=== PATIENT | male | born 1965 | race African-American/Black ===

== ENCOUNTER 2020-07-27 13:39 | Inpatient (IN) | payer BC, OTHER ==
[2020-07-27] MEDS ORDERED: SODIUM CHLORIDE 1,000 ML IV STA (14:19)
[2020-07-27 16:10] LABS: BASO % 0.7 % (0-2.0); EOS % 1.2 % (0-4.5); HEMATOCRIT 42.4 % (35.4-49); LYMPH % 34.2 % (8-40); MCH 29.5 pg (25.7-33.7); MCHC 32.9 g/dl (32.0-35.9); MEAN CELL VOLUME 89.4 fl (80-96); MEAN PLT VOLUME 8.6 fl (7.5-11.1); MONO % 8.6 % (3.8-10.2); NEUT % 55.3 % (42.8-82.8); PLATELET COUNT 248 K/MM3 (134-434); RBC 4.74 M/mm3 (4.00-5.60); RDW 14.6 % (11.9-15.9); WHITE BLOOD COUNT 4.2 K/mm3 (4.0-10.0)
[2020-07-27 16:13] LABS: PH,URINE 6.5 (5.0-8.0); URINE APPEARANCE CLEAR; URINE BILIRUBIN NEGATIVE (NEGATIVE); URINE COLOR YELLOW; URINE GLUCOSE (UA) 3+ (NEGATIVE); URINE KETONE 1+ (NEGATIVE); URINE LEUK ESTERASE NEGATIVE (NEGATIVE); URINE NITRITE NEGATIVE (NEGATIVE); URINE PROTEIN NEGATIVE (NEGATIVE); URINE UROBILINOGEN 0.2 mg/dL (0.2-1.0)
[2020-07-27 16:19] LABS: INR 0.88 (0.83-1.09); PROTHROMBIN TIME (PATIENT) 10.9 SEC (9.7-13.0)
[2020-07-27 16:22] LABS: ACTIVATED PTT 25.9 SECONDS (25.2-36.5)
[2020-07-27] MEDS ORDERED: INSULIN REGULAR HUMAN 100 UNITS/ML *VIAL IVPUSH ONE (16:31)
[2020-07-27 16:38] LABS: CHLORIDE 93 mmol/L (98-107); SODIUM 130 mmol/L (136-145)
[2020-07-27 16:42] LABS: ALBUMIN 3.9 g/dl (3.4-5.0); ANION GAP 11 MMOL/L (8-16); BLOOD UREA NITROGEN 19.2 mg/dL (7-18); CALCIUM 9.4 mg/dL (8.5-10.1); CO2 26 mmol/L (21-32)
[2020-07-27] MEDS ORDERED: INSULIN REGULAR HUMAN 100 UNITS/ML *VIAL ONE (16:43)
[2020-07-27 16:44] LABS: CREATININE 1.2 mg/dL (0.55-1.3); SGOT/AST 16 U/L (15-37); SGPT/ALT 24 U/L (13-61)
[2020-07-27] MEDS ORDERED: INSULIN REGULAR 100 UNITS in SODIUM CHLORIDE 99 ML IVPB SCH (16:45)
[2020-07-27 16:46] LABS: BILIRUBIN,TOTAL 0.6 mg/dL (0.2-1); TOT PROT 7.9 g/dl (6.4-8.2)
[2020-07-27 16:47] LABS: ALK PHOS 169 U/L (45-117)
[2020-07-27 16:50] LABS: GLUCOSE,RANDOM 663 mg/dL (74-106)
[2020-07-27 17:30] LABS: VENOUS BASE EXCESS 0.5 mmol/L (-2-2); VENOUS O2 SATURATION 22.1 % (70-80); VENOUS PCO2 49.7 mmHg (38-52); VENOUS PH 7.35 (7.310-7.410)
[2020-07-28] MEDS ORDERED: INSULIN SLIDING SCALE (NOVOLOG) 1 VIAL SQ SCH ×3 (00:20→07:00)
[2020-07-28] MEDS ORDERED: INSULIN (NOVOLOG) ASPART 100 UNITS/ML 10ML VIAL SQ ONE (00:30)
[2020-07-28 02:18] VITALS: BMI 23.3
[2020-07-28] MEDS: INSULIN SLIDING SCALE (NOVOLOG) 1 VIAL SQ SCH ×5 (04:57→20:22)
[2020-07-28] MEDS ORDERED: INSULIN (NOVOLOG) ASPART 100 UNITS/ML 10ML VIAL ONE ×2 (08:27→20:18)
[2020-07-28 08:56] LABS: BASO % 0.6 % (0-2.0); EOS % 2.2 % (0-4.5); HEMATOCRIT 37.8 % (35.4-49); LYMPH % 45.8 % (8-40); MCH 30.1 pg (25.7-33.7); MCHC 34.3 g/dl (32.0-35.9); MEAN CELL VOLUME 87.7 fl (80-96); MEAN PLT VOLUME 8.5 fl (7.5-11.1); NEUT % 38.4 % (42.8-82.8); PLATELET COUNT 227 K/MM3 (134-434); RBC 4.31 M/mm3 (4.00-5.60); WHITE BLOOD COUNT 4.4 K/mm3 (4.0-10.0)
[2020-07-28 09:31] LABS: ALBUMIN 3.2 g/dl (3.4-5.0); CALCIUM 8.5 mg/dL (8.5-10.1)
[2020-07-28 09:32] LABS: BLOOD UREA NITROGEN 14.8 mg/dL (7-18)
[2020-07-28 09:34] LABS: CREATININE 0.9 mg/dL (0.55-1.3)
[2020-07-28 09:36] LABS: BILIRUBIN,TOTAL 0.4 mg/dL (0.2-1); TOT PROT 6.8 g/dl (6.4-8.2)
[2020-07-28] MEDS ORDERED: INSULIN (LEVEMIR) 100 UNITS/ML UNITS SQ SCH ×2 (10:15)
[2020-07-28] MEDS: INSULIN (LEVEMIR) 100 UNITS/ML UNITS SQ SCH ×2 (12:18→20:59)
[2020-07-28] MEDS ORDERED: ACETAMINOPHEN 325 MG TABLET (FP) PO PRN (16:13)
[2020-07-28] MEDS: POLYETHYLENE GLYCOL 3350 119 GM BTL PO SCH (16:52)
[2020-07-29] MEDS: INSULIN SLIDING SCALE (NOVOLOG) 1 VIAL SQ SCH ×3 (06:00→12:39)
[2020-07-29 06:37] VITALS: TEMP 97.9
[2020-07-29] MEDS ORDERED: INSULIN (LEVEMIR) 100 UNITS/ML UNITS SQ SCH (07:00)
[2020-07-29] MEDS: POLYETHYLENE GLYCOL 3350 119 GM BTL PO SCH (10:51)
[2020-07-29 10:59] VITALS: BP 101/71; PULSE 76
== END 2020-07-29 14:12 | disposition home or self-care (01) | DRG 420 ==
LOC: JER 13:39 → JERBED 17:10 → J5S 23:44
PROVIDERS: ADMIT Hospitalist; ATTEND Family Medicine
DX: E11.65 Type 2 diabetes mellitus with hyperglycemia (principal); E87.1 Hypo-osmolality and hyponatremia
CPT/HCPCS: 36415; 80053; 81003; 82010; 82550; 82803; 82962; 84484; 85025; 85610; 85730; 87086; 93005; 93010; 99285-25; C9803; U0003; U0005

== ENCOUNTER 2022-05-07 13:22 | Emergency (ER) | payer BC, OTHER ==
[2022-05-07 13:27] VITALS: RESP 18; BMI 28.3
[2022-05-07 15:15] LABS: BASO % 0.3 % (0-2.0); EOS % 2.1 % (0-4.5); HEMATOCRIT 40.2 % (35.4-49); HEMOGLOBIN 13.5 GM/dL (11.7-16.9); LYMPH % 21.2 % (8-40); MCH 29.9 pg (25.7-33.7); MCHC 33.6 g/dl (32.0-35.9); MONO % 19.7 % (3.8-10.2); NEUT % 56.7 % (42.8-82.8); PLATELET COUNT 208 10^3/uL (134-434); RBC 4.51 M/mm3 (4.00-5.60); RDW 14.3 % (11.9-15.9); WHITE BLOOD COUNT 5.2 K/mm3 (4.0-10.0)
[2022-05-07 15:18] LABS: URINE APPEARANCE CLEAR; URINE BILIRUBIN NEGATIVE (NEGATIVE); URINE COLOR YELLOW; URINE GLUCOSE (UA) NEGATIVE (NEGATIVE); URINE KETONE NEGATIVE (NEGATIVE); URINE LEUK ESTERASE NEGATIVE (NEGATIVE); URINE NITRITE NEGATIVE (NEGATIVE); URINE PROTEIN NEGATIVE (NEGATIVE); URINE UROBILINOGEN 0.2 mg/dL (0.2-1.0)
[2022-05-07 15:39] LABS: CALCIUM 8.6 mg/dL (8.5-10.1)
[2022-05-07 15:40] LABS: ALBUMIN 3.4 g/dl (3.4-5.0); BLOOD UREA NITROGEN 15.9 mg/dL (7-18); MAGNESIUM 1.8 mg/dL (1.8-2.4)
[2022-05-07 15:42] LABS: CREATININE 1.1 mg/dL (0.55-1.3)
[2022-05-07 15:44] LABS: BILIRUBIN,TOTAL 0.5 mg/dL (0.2-1); TOT PROT 7.6 g/dl (6.4-8.2)
[2022-05-07 17:42] VITALS: BP 112/56; PULSE 68; TEMP 98.2
== END 2022-05-07 17:32 | disposition home or self-care (01) ==
LOC: JER 13:22
DX: R53.83 Other fatigue (principal)
CPT/HCPCS: 0241U-QW; 36415; 80053; 81003; 82150; 82962; 83690; 83735; 85025; 87086; 99283-25

== ENCOUNTER 2022-05-30 14:36 | Observation (INO) | payer BC ==
[2022-05-30] MEDS ORDERED: SODIUM CHLORIDE 1,000 ML IV ONE (15:45)
[2022-05-30 16:42] LABS: BASO % 0.6 % (0-2.0); EOS % 1.4 % (0-4.5); HEMATOCRIT 38.4 % (35.4-49); HEMOGLOBIN 12.5 GM/dL (11.7-16.9); LYMPH % 20.3 % (8-40); MCH 28.4 pg (25.7-33.7); MCHC 32.7 g/dl (32.0-35.9); MEAN CELL VOLUME 86.9 fl (80-96); MEAN PLT VOLUME 7.3 fl (7.5-11.1); NEUT % 63.7 % (42.8-82.8); PLATELET COUNT 298 10^3/uL (134-434); RBC 4.42 M/mm3 (4.00-5.60); RDW 14.7 % (11.9-15.9)
[2022-05-30 16:49] LABS: INR 1.15 (0.83-1.09); PROTHROMBIN TIME (PATIENT) 13.3 SEC (9.7-13.0)
[2022-05-30 16:52] LABS: ACTIVATED PTT 28.1 SECONDS (25.2-36.5)
[2022-05-30 17:18] LABS: CALCIUM 8.4 mg/dL (8.5-10.1)
[2022-05-30 17:19] LABS: ALBUMIN 3.1 g/dl (3.4-5.0); BLOOD UREA NITROGEN 21.1 mg/dL (7-18)
[2022-05-30 17:22] LABS: CREATININE 1.1 mg/dL (0.55-1.3)
[2022-05-30 17:22] LABS: PH,URINE 6.5 (5.0-8.0); URINE APPEARANCE CLEAR; URINE BILIRUBIN NEGATIVE (NEGATIVE); URINE COLOR YELLOW; URINE GLUCOSE (UA) 3+ (NEGATIVE); URINE KETONE NEGATIVE (NEGATIVE); URINE LEUK ESTERASE NEGATIVE (NEGATIVE); URINE NITRITE NEGATIVE (NEGATIVE); URINE PROTEIN NEGATIVE (NEGATIVE); URINE UROBILINOGEN 0.2 mg/dL (0.2-1.0)
[2022-05-30 17:23] LABS: TOT PROT 7.4 g/dl (6.4-8.2)
[2022-05-30 17:24] LABS: BILIRUBIN,TOTAL 0.4 mg/dL (0.2-1)
[2022-05-30] MEDS ORDERED: ACETAMINOPHEN 325 MG TABLET (FP) PO PRN (17:38)
[2022-05-30] MEDS ORDERED: BLOOD SUGAR DIAGNOSTIC MC SCH (22:00)
[2022-05-30] MEDS: D5-1/2NS+20 MEQ KCL - 20 MEQ/1,000 ML INFUS.BAG IV SCH (22:49)
[2022-05-31 08:04] LABS: CALCIUM 8.5 mg/dL (8.5-10.1)
[2022-05-31 08:05] LABS: ALBUMIN 2.9 g/dl (3.4-5.0); BLOOD UREA NITROGEN 17.9 mg/dL (7-18); MAGNESIUM 2.1 mg/dL (1.8-2.4)
[2022-05-31 08:09] LABS: BILIRUBIN,TOTAL 0.4 mg/dL (0.2-1); TOT PROT 7.3 g/dl (6.4-8.2)
[2022-05-31 08:13] LABS: CHOLESTEROL 110 mg/dL (50-200)
[2022-05-31 08:14] LABS: LDL CHOLESTEROL (ONLY SJRH) 60 mg/dL (5-100)
[2022-05-31 08:15] LABS: HDL CHOLESTEROL 38 mg/dL (40-60)
[2022-05-31 08:19] LABS: BASO % 0.3 % (0-2.0); EOS % 3.6 % (0-4.5); HEMATOCRIT 37.8 % (35.4-49); HEMOGLOBIN 12.8 GM/dL (11.7-16.9); MCH 29.1 pg (25.7-33.7); MCHC 33.8 g/dl (32.0-35.9); MEAN CELL VOLUME 85.9 fl (80-96); MEAN PLT VOLUME 7.4 fl (7.5-11.1); MONO % 20.8 % (3.8-10.2); NEUT % 41.3 % (42.8-82.8); PLATELET COUNT 287 10^3/uL (134-434); RDW 14.8 % (11.9-15.9)
[2022-05-31 09:01] LABS: ANISOCYTOSIS 1+; MACROCYTOSIS 0
[2022-05-31] MEDS: POLYETHYLENE GLYCOL (HEALTHYLAX) 3350 17 GM PACKET PO SCH (10:58)
[2022-05-31] MEDS: D5-1/2NS+20 MEQ KCL - 20 MEQ/1,000 ML INFUS.BAG IV SCH (18:28)
[2022-06-01 08:17] LABS: HEMOGLOBIN 12.5 GM/dL (11.7-16.9); MCH 29.2 pg (25.7-33.7); MCHC 33.9 g/dl (32.0-35.9); MEAN CELL VOLUME 86.1 fl (80-96); MEAN PLT VOLUME 7.4 fl (7.5-11.1); PLATELET COUNT 292 10^3/uL (134-434); WHITE BLOOD COUNT 3.1 K/mm3 (4.0-10.0)
[2022-06-01 08:51] LABS: ANISOCYTOSIS 0; MACROCYTOSIS 0
[2022-06-01] MEDS: POLYETHYLENE GLYCOL (HEALTHYLAX) 3350 17 GM PACKET PO SCH (09:19)
[2022-06-01] MEDS ORDERED: PEG 3350/NA SULF BICARB CL/KCL 4000 ML SOLN.RECON PO ONE (11:02)
[2022-06-01] MEDS ORDERED: BISACODYL 5 MG TABLET.DR (FP) PO ONE (20:00)
[2022-06-01] MEDS: D5-1/2NS+20 MEQ KCL - 20 MEQ/1,000 ML INFUS.BAG IV SCH (21:06)
[2022-06-01 23:55] VITALS: BMI 27.1
[2022-06-02] MEDS: POLYETHYLENE GLYCOL (HEALTHYLAX) 3350 17 GM PACKET PO SCH (09:02)
[2022-06-02 12:46] LABS: BASO % 0.7 % (0-2.0); EOS % 1.8 % (0-4.5); HEMATOCRIT 41.8 % (35.4-49); HEMOGLOBIN 14.2 GM/dL (11.7-16.9); LYMPH % 27.4 % (8-40); MCH 29.3 pg (25.7-33.7); MCHC 33.9 g/dl (32.0-35.9); MEAN CELL VOLUME 86.6 fl (80-96); MEAN PLT VOLUME 7.5 fl (7.5-11.1); MONO % 16.6 % (3.8-10.2); NEUT % 53.5 % (42.8-82.8); PLATELET COUNT 282 10^3/uL (134-434); RBC 4.83 M/mm3 (4.00-5.60); WHITE BLOOD COUNT 4.1 K/mm3 (4.0-10.0)
[2022-06-02 13:01] LABS: CALCIUM 9.6 mg/dL (8.5-10.1)
[2022-06-02 13:02] LABS: BLOOD UREA NITROGEN 9.4 mg/dL (7-18)
[2022-06-02 13:07] LABS: BILIRUBIN,TOTAL 0.6 mg/dL (0.2-1); TOT PROT 8.4 g/dl (6.4-8.2)
[2022-06-02 13:38] LABS: ALBUMIN 3.5 g/dl (3.4-5.0)
[2022-06-02 15:26] VITALS: BP 113/54; PULSE 77; RESP 18; TEMP 98.1
== END 2022-06-02 17:45 | disposition home or self-care (01) ==
LOC: JER 14:36 → JERBED 15:50 → J4W 21:18
PROVIDERS: ADMIT Family Medicine; ATTEND Family Medicine
PROC: 0DJ08ZZ Inspection of Upper Intestinal Tract, Via Natural or Artificial Opening Endoscopic (ICD-10-PCS; principal; 2022-05-30)
PROC: 3E033GC Introduction of Other Therapeutic Substance into Peripheral Vein, Percutaneous Approach (ICD-10-PCS; 2022-05-30)
PROC: 3E0337Z Introduction of Electrolytic and Water Balance Substance into Peripheral Vein, Percutaneous Approach (ICD-10-PCS; 2022-05-30)
DX: I11.0 Hypertensive heart disease with heart failure (principal); I50.30 Unspecified diastolic (congestive) heart failure; E11.9 Type 2 diabetes mellitus without complications; E78.5 Hyperlipidemia, unspecified; R59.1 Generalized enlarged lymph nodes; R55 Syncope and collapse; R53.1 Weakness; R63.4 Abnormal weight loss; R10.9 Unspecified abdominal pain; R68.81 Early satiety
CPT/HCPCS: 0241U-QW; 36415; 43239; 70450-TC; 71045-TC-FY; 71275-TC; 74177-TC; 80053; 80061; 81003; 82962; 83036; 83735; 84443; 84484; 85025; 85379; 85610; 85730; 87086; 87522; 88305-TC; 88342-TC; 93005; 93010; 93306-TC; 96361; 96365; 99285-25; G0378; Q9967

== ENCOUNTER 2023-08-12 19:46 | Emergency (ER) | payer BC, OTHER ==
[2023-08-12 20:01] VITALS: BP 109/71; PULSE 78; RESP 18; TEMP 98.3; BMI 26.9
[2023-08-12] MEDS ORDERED: ACETAMINOPHEN INJECTION 100 ML IVPB ONE (21:10)
[2023-08-12 21:13] LABS: BASO % 0.7 % (0-2.0); EOS % 3.6 % (0-4.5); HEMATOCRIT 43.7 % (35.4-49); HEMOGLOBIN 15.2 GM/dL (11.7-16.9); LYMPH % 29.4 % (8-40); MCH 30.9 pg (25.7-33.7); MCHC 34.8 g/dl (32.0-35.9); MEAN CELL VOLUME 88.6 fl (80-96); MEAN PLT VOLUME 7.5 fl (7.5-11.1); NEUT % 52.3 % (42.8-82.8); PLATELET COUNT 175 10^3/uL (134-434); RBC 4.94 M/mm3 (4.00-5.60); RDW 14.9 % (11.9-15.9); WHITE BLOOD COUNT 3.9 K/mm3 (4.0-10.0)
[2023-08-12] MEDS: ACETAMINOPHEN 1000 MG/100 ML BAG IVPB ONE (21:15)
[2023-08-12 21:43] LABS: POTASSIUM 4.6 mmol/L (3.5-5.1)
[2023-08-12 21:45] LABS: ALBUMIN 3.7 g/dl (3.4-5.0); BLOOD UREA NITROGEN 20.8 mg/dL (7-18); CALCIUM 8.4 mg/dL (8.5-10.1); MAGNESIUM 2.1 mg/dL (1.8-2.4)
[2023-08-12 21:48] LABS: CREATININE 1.4 mg/dL (0.55-1.3)
[2023-08-12 21:50] LABS: BILIRUBIN,TOTAL 0.5 mg/dL (0.2-1); TOT PROT 7.5 g/dl (6.4-8.2)
[2023-08-12] MEDS: SODIUM CHLORIDE 1,000 ML IV STA (22:45)
== END 2023-08-12 23:48 | disposition home or self-care (01) ==
LOC: JER 19:46
PROC: 3E033NZ Introduction of Analgesics, Hypnotics, Sedatives into Peripheral Vein, Percutaneous Approach (ICD-10-PCS; principal; 2023-08-12)
PROC: 3E0337Z Introduction of Electrolytic and Water Balance Substance into Peripheral Vein, Percutaneous Approach (ICD-10-PCS; 2023-08-12)
DX: U07.1 COVID-19 (principal); R53.1 Weakness; R42 Dizziness and giddiness; R53.83 Other fatigue
CPT/HCPCS: 0241U-QW; 36415; 71045-TC-FY; 80053; 83735; 84484; 85025; 93005; 93010; 99285-25; J0131